=== PATIENT | male | born 1970 | race Caucasian/White ===

== ENCOUNTER 2018-02-02 20:31 | Emergency (ER) | payer BC, OTHER ==
[~2018-02-02] VITALS: Ht 177.8 cm; Wt 86.2 kg
--- NOTE | 2018-02-02 21:12 | NUR ---
BIB FAMILY "FELL OFF 2 STORY BUILDONG AND LANEDE OB BOTH FEET; NOW BOTH ANKLES HURT" PT AOX3 RR EVEN AND UNLABORED. NO SOB NOTED. NAD NOTED. NO NVD AT THIS TIME. PT GOWNED AND PLACED ON MONITOR WAITING FOR MD CABA.
[2018-02-02] MEDS ORDERED: oxyCODONE/APAP (5/325 MG) 1 UDTAB TABLET ONE (21:35)
[2018-02-02] MEDS ORDERED: IBUPROFEN 600 MG TABLET PO ONE (21:35)
--- NOTE | 2018-02-02 21:35 | NUR ---
RADIOLOGY AT BEDSIDE FOR ANKLE XR
[2018-02-02] MEDS: oxyCODONE/APAP (5/325 MG) 1 UDTAB TABLET PO ONE (21:38)
[2018-02-02] MEDS: IBUPROFEN 600 MG TABLET PO ONE (21:38)
--- NOTE | 2018-02-02 22:48 | NUR ---
ECTOR WHITE AT BEDSIDE SPEAKING TO PT AND REGARDING RESULTS.
--- NOTE | 2018-02-02 23:29 | NUR ---
Patient discharged to home in stable condition. Written and verbal after care instructions given. Patient verbalizes understanding of instruction. ambulatory with a steady gait. per request pt w/c to lobby. instructed pt not to drive. pt verbalize understanding.
[2018-02-02 23:30] VITALS: BP 158/68
== END 2018-02-02 23:30 | disposition home or self-care (01) ==
LOC: ER 20:31
DX: S93.401A Sprain of unspecified ligament of right ankle, initial encounter (principal); S93.402A Sprain of unspecified ligament of left ankle, initial encounter; S93.601A Unspecified sprain of right foot, initial encounter; S93.602A Unspecified sprain of left foot, initial encounter; F17.200 Nicotine dependence, unspecified, uncomplicated; W18.39XA Other fall on same level, initial encounter; Y93.89 Activity, other specified; Y92.89 Other specified places as the place of occurrence of the external cause; Y99.8 Other external cause status
CPT/HCPCS: 73610-TC; 73630-TC; A4606; Z7610